=== PATIENT | male | born 1940 | race Caucasian/White ===

== ENCOUNTER → 2023-10-05 06:32 | Day surgery (SDC) | payer MEDICARE, SELFPAY | LOC: GI 06:32 | PROVIDERS: ATTENDING PHYSICIAN Internal Medicine Gastroenterology; FAMILY PHYSICIAN Internal Medicine | DX: Z12.11 Encounter for screening for malignant neoplasm of colon (principal); D12.2 Benign neoplasm of ascending colon; K51.00 Ulcerative (chronic) pancolitis without complications; K57.30 Diverticulosis of large intestine without perforation or abscess without bleeding; D12.8 Benign neoplasm of rectum; K64.8 Other hemorrhoids; Z86.010 Personal history of colon polyps; Z98.0 Intestinal bypass and anastomosis status | CPT/HCPCS: 45385; 45380; 88305 ==

== ENCOUNTER 2025-04-09 11:51 | Emergency (ER) | payer MEDICARE, SELFPAY ==
[2025-04-09 11:56] VITALS: BP 183/80
[2025-04-09 12:11] VITALS: BMI 26.3
--- NOTE | 2025-04-09 12:27 | ED.GENMED ---
History of Present Illness
General
Chief Complaint: Head Injury
Time Seen by Provider: 04/09/25 12:03
History of Present Illness
History of Present Illness:
85 yo male w/ hx of HTN, HLD and COPD presents to the Emergency Department for evaluation after a fall. Reportedly was walking in the kitchen when he fell, he is uncertain of the mechanism however his saw him attempt to break his fall with his
hands. + head strike, no reported LOC, no N/V. Currently reports R hand/5th finger pain and mid/low back pain. Was able to ambulate on arrival to the ED. Takes 81mg asa, no OAC. Denies neck pain, vision changes, CP/SOB, upper or lower extremity
paresthesias.
Past History
Past History
ED Past Medical History: HTN, Hypercholesterolemia and Other (Ulcerative colitis, Diverticulitis, C-diff)
ED Past Surgical History: Appendectomy, Bowel resection, Orthopedic and Tonsilectomy
Social History
Tobacco: Former smoker
Alcohol: Occasional
Personal:
Living: with family
Employment: Retired
Family History
Family History: Other (Noncontributory)
Review of Systems
Review of Systems
Allergies reviewed?: Yes
All Other Systems: ROS reviewed and negative except as documented in HPI and ROS
Phy Exam
Physical Exam
Physical Exam:
GEN: Well appearing, NAD, WDWN
Eyes: PERRLA, EOMs intact, no scleral icterus
HENT: Minor ecchymosis to the R temporal scalp, no crepitus/hematoma. No midline C spine pain
Lungs: CTAB, no wheezes, rales, rhonchi, normal chest wall excursion
Cardiac: RRR, no M/R/G, no peripheral edema. Radial pulses 2+ bilat
Abdomen: S, NT, ND, NABS, no masses or hepatosplenomegaly
Neuro: AO x 3, no focal deficits to BUE/BLE, normal sensation throughout
MSK: No gross deformity or ecchymosis. No edema. No midline C spine tenderness; + low thoracic/upper lumbar midline tenderness w/o palpable deformity. Pelvis stable without tenderness or crepitus
Skin: No rashes, petechiae. Normal color, no pallor or jaundice.
Psych: Calm, cooperative, proper hygiene
Course
Orders/Labs/Results
Orders:
Orders
04/09/25 12:26
CR Finger(s)/thumb Min 2 Vw Rt Urgent
Comment:
Reason For Exam: R 5th finger injury
Indicate Which Finger:: Little Finger
CR Lumbar Spine Comp Min 4 Vw* Urgent
Comment:
Reason For Exam: fall
CR Thoracic Spine 3 Views Urgent
Comment:
Reason For Exam: fall
04/09/25 12:27
CT Head W/o Iv Contrast Urgent
Comment:
Reason For Exam: fall head injury
Vital Signs
Initial and Last Documented VS:
Initial Vital Signs
Temp Pulse Resp BP Pulse Ox
97.5 F 87 20 183/80 95
04/09/25 11:56 04/09/25 11:56 04/09/25 11:56 04/09/25 11:56 04/09/25 11:56
Last Documented Vital Signs
Temp Pulse Resp BP Pulse Ox
97.5 F 87 20 183/80 95
04/09/25 11:56 04/09/25 11:56 04/09/25 11:56 04/09/25 11:56 04/09/25 12:28
MDM/Problems Addressed
MDM/Problems Addressed:
Imaging without evidence for ICH/skull fx or bony trauma. The fall sounds mechanical based on the spouse reporting that pt assumed a defensive position to shield himself from injury. Wounds cleansed and re approximated with steri strips. Suitable
for d/c home
*Pulse Oximetry
SaO2: 95
Oxygen Mode of Delivery: Room air
Patient hypoxic: no
*Critical Care Note
Total Time (30-74mins, 75-104mins- exclusive of procedures): Not Applicable
ED Attending Note
-
Portions of this chart may have been created with voice recognition software.� Occasional wrong word or��sound alike� substitutions may have occurred due to the inherent limitations of voice recognition software.
Discharge Plan
Departure
Patient Disposition: Home (Routine Discharge)
Date of Disposition: 04/09/25
Time of Disposition: 13:31
Patient with high blood pressure during this ER visit?: No
Discharge Problem:
Fall, Closed head injury, Skin tear of right forearm without complication, Skin tear right little finger
Instructions: Wound Care (DC), Head Injury in Adults (DC)
Prescriptions:
No Action
atorvastatin [Lipitor] 40 MG tablet
40 mg PO DAILY
carvedilol 12.5 MG tablet
12.5 mg PO BID
aspirin [Adult Aspirin Regimen] 81 MG tablet,delayed release (DR/EC)
81 mg PO DAILY
benazepril [Lotensin] 20 MG tablet
20 mg PO DAILY
ezetimibe [Zetia] 10 MG tablet
10 mg PO DAILY
mesalamine [Lialda] 1.2 GM tablet,delayed release (DR/EC)
1.2 g PO BID AT 0800,1700
cholecalciferol (vitamin D3) [Vitamin D3] 2,000 UNIT capsule
2,000 mg PO DAILY
[id number] [Men 50 Plus Multivitamin] 1 EACH tablet
1 tab PO DAILY
Patient Comments:
Pt is on Men's 50 plus Centrum Silver MVI without iron
carbamazepine 100 MG tablet,chewable
100 mg PO QID
Bifidobacterium infantis [Align (B.infantis)] 4 MG capsule
4 mg PO DAILY
amlodipine [Norvasc] 5 MG tablet
5 mg PO BID
hydrocodone-acetaminophen 1 TABLET tablet
1 - 2 tab PO Q4HPRN PRN (Reason: pain) Qty: 40 0RF
tramadol 50 MG tablet
25 - 50 mg PO Q6HPRN PRN (Reason: severe pain/breakthrough pain) Qty: 20 0RF
Activity Restrictions/Additional Instructions:
Keep wounds dry today, then you may gently wash with soap and water tomorrow
Steri strips will fall off on their own in 5 or so days
Follow up with your primary care physician as needed
Interventions
Interventions:
*Risk Screen - Suicide Last Done: 04/09/25 11:56
*Neglect/Abuse Screening Last Done: 04/09/25 11:56
*Nursing Disposition Last Done: 04/09/25 13:48
ED- Neurological Assessment Last Done: 04/09/25 12:09
ED-Skin Assessment Last Done: 04/09/25 12:09
Discharge Date and Time
Discharge Date/Time: 04/09/25 13:50
Print Language: CHINESE
== END 2025-04-09 13:50 | disposition home or self-care (01) ==
LOC: EMR 11:51
PROVIDERS: EMERGENCY PHYSICIAN Student in an Organized Health Care Education/Training Program
DX: S09.90XA Unspecified injury of head, initial encounter (principal); S51.811A Laceration without foreign body of right forearm, initial encounter; S61.216A Laceration without foreign body of right little finger without damage to nail, initial encounter; W19.XXXA Unspecified fall, initial encounter; I10 Essential (primary) hypertension; E78.00 Pure hypercholesterolemia, unspecified; J44.9 Chronic obstructive pulmonary disease, unspecified; K51.90 Ulcerative colitis, unspecified, without complications; Z87.891 Personal history of nicotine dependence; Z90.49 Acquired absence of other specified parts of digestive tract
CPT/HCPCS: 99284; 70450; 72072; 72110; 73140

== ENCOUNTER 2025-04-13 04:54 | Emergency (ER) | payer MEDICARE, SELFPAY ==
[2025-04-13 05:03] VITALS: BP 180/98
[2025-04-13 05:04] VITALS: BMI 26.9
--- NOTE | 2025-04-13 05:16 | ED.GENMED ---
History of Present Illness
General
Chief Complaint: Back Pain
Source: patient and spouse
Exam Limitations: none
Time Seen by Provider: 04/13/25 05:00
Nursing documentation reviewed up to this point in time: agreed with
History of Present Illness
History of Present Illness:
85-year-old male past medical history of previous stroke hypertension hyperlipidemia presenting to the emergency department today with concerns after a fall that occurred 3 days ago had imaging at the time including back head CT without emergent
findings. He was discharged did have some ongoing back pain back pain is slightly progressed and has had difficulty sleeping getting comfortable due to ongoing back discomfort. Has been able to ambulate denies any urinary symptoms any numbness or
weakness into the extremities.
Past History
Past History
ED Past Medical History: HTN, Hypercholesterolemia and Other (Ulcerative colitis, Diverticulitis, C-diff)
ED Past Surgical History: Appendectomy, Bowel resection, Orthopedic and Tonsilectomy
Social History
Tobacco: Former smoker
Alcohol: Occasional
Personal:
Living: with family
Employment: Retired
Family History
Family History: Other (Noncontributory)
Review of Systems
Review of Systems
Allergies reviewed?: Yes
All Other Systems: ROS reviewed and negative except as documented in HPI and ROS
Phy Exam
Physical Exam
Physical Exam:
GENERAL: Alert , in no apparent distress
EYE: pupils equal and reactive
NECK: Supple, no significant adenopathy.
ENT: o/p clr, mmm.
CARDIAC: Regular rate and rhythm .
LUNGS: Clear breath sounds bilaterally, no acute respiratory distress, no wheezes/rales/rhonchi
ABDOMEN: Soft, without focal tenderness, no r/g, no cvat
NEUROLOGICAL: Alert and oriented, no focal neuro deficits
SKIN: Warm and dry, skin intact.
MUSCULOSKELETAL: No edema, well perfused.
PSYCH: Normal and appropriate interaction.
Course
Orders/Labs/Results
Orders:
Orders
04/13/25 05:16
Hydrocodone 7.5/APAP 325 [Sheldon 7.5/325] 1 tablet PO NOW STA
Ketorolac [Toradol] 30 mg IM NOW STA
Vital Signs
Initial and Last Documented VS:
Initial Vital Signs
Temp Pulse Resp BP Pulse Ox
97.6 F 90 20 180/98 93
04/13/25 05:03 04/13/25 05:03 04/13/25 05:03 04/13/25 05:03 04/13/25 05:03
Last Documented Vital Signs
Temp Pulse Resp BP Pulse Ox
97.6 F 92 20 180/98 94
04/13/25 05:03 04/13/25 08:13 04/13/25 05:03 04/13/25 05:03 04/13/25 08:13
MDM/Problems Addressed
MDM/Problems Addressed:
85-year-old male presenting to the emergency department with concerns of low back pain. This occurred after a fall that occurred 3 days ago. At the time did have imaging without signs of any bony injury. Patient is able to ambulate symptoms seem
to worsen with movements and positioning. She has been consistent with a soft tissue low back pain. Plan for symptomatic treatment. Otherwise patient is neurologically intact. No focal midline pain no overlying skin changes. No evidence of
cauda equina or infectious cause of back pain patient recently did have an x-ray did not show any signs of fracture.
We had a long discussion about potential pain medications and the concern of risk of the opioid medication considering it can increase risk of falling. He demonstrated understanding of this he claims that he would like to take the medication and
does have a very safe circumstance at home and always has his available to help him at home. He claims that he has not been able to sleep and would be very careful taking medication but does not like to take the medication despite the
potential risk.
*Pulse Oximetry
SaO2: 93
Oxygen Mode of Delivery: Room air
Patient hypoxic: no (96)
*Critical Care Note
Total Time (30-74mins, 75-104mins- exclusive of procedures): Not Applicable
ED Attending Note
-
Portions of this chart may have been created with voice recognition software.� Occasional wrong word or��sound alike� substitutions may have occurred due to the inherent limitations of voice recognition software.
Discharge Plan
Departure
Patient Disposition: Home (Routine Discharge)
Date of Disposition: 04/13/25
Time of Disposition: 06:04
Patient with high blood pressure during this ER visit?: No
Condition: Good
Covid-19: Not Applicable
Discharge Problem:
Back pain
Instructions: Low Back Pain (DC)
Prescriptions:
New
hydrocodone-acetaminophen 5-300 mg tablet
1 tab PO BID PRN (Reason: Pain) Qty: 5 0RF
No Action
atorvastatin [Lipitor] 40 MG tablet
40 mg PO DAILY
aspirin [Adult Aspirin Regimen] 81 MG tablet,delayed release (DR/EC)
81 mg PO Q48H
benazepril [Lotensin] 20 MG tablet
20 mg PO DAILY
ezetimibe [Zetia] 10 MG tablet
10 mg PO DAILY
mesalamine [Lialda] 1.2 GM tablet,delayed release (DR/EC)
1.2 g PO BID AT 0800,1700
cholecalciferol (vitamin D3) [Vitamin D3] 2,000 UNIT capsule
2,000 mg PO DAILY
Men 50 Plus Multivitamin 1 EACH tablet
1 tab PO DAILY
Patient Comments:
Pt is on Men's 50 plus Centrum Silver MVI without iron
carbamazepine 100 MG tablet,chewable
100 mg PO BID
amlodipine [Norvasc] 5 MG tablet
5 mg PO BID
turmeric
1,500 mg PO DAILY
Referrals:
Mukesh Kirk MD [Family Provider, Internal Medicine]
Activity Restrictions/Additional Instructions:
You came to the emergency department today with concerns of back pain. This likely is from soft tissue inflammation. Please take the prescribed medication help with pain and follow-up closely with your primary care doctor this week. Return for
any worsening, new or concerning symptoms.
Interventions
Interventions:
*Risk Screen - Suicide Last Done: 04/13/25 04:55
*General Assessment Last Done: 04/13/25 04:55
*Neglect/Abuse Screening Last Done: 04/13/25 05:09
*ED- Fall Risk Assessment Last Done: 04/13/25 04:55
*ED COVID-19 Vaccine History Last Done: 04/13/25 04:55
*ED Influenza Vaccine History Last Done: 04/13/25 04:55
*Nursing Disposition Last Done: 04/13/25 08:13
ED-Musculoskeletal Assessment Last Done: 04/13/25 05:07
Discharge Date and Time
Discharge Date/Time: 04/13/25 08:14
Print Language: THAI
[2025-04-13] MEDS: NORCO 7.5/325 1 TABLET PO (05:29)
[2025-04-13] MEDS: TORADOL 30 MG IM (05:29)
== END 2025-04-13 08:14 | disposition home or self-care (01) ==
LOC: EMR 04:54
PROVIDERS: EMERGENCY PHYSICIAN Emergency Medicine; FAMILY PHYSICIAN Internal Medicine
DX: M54.50 Low back pain, unspecified (principal); I10 Essential (primary) hypertension; E78.00 Pure hypercholesterolemia, unspecified; Z87.891 Personal history of nicotine dependence; Z90.49 Acquired absence of other specified parts of digestive tract; Z86.73 Personal history of transient ischemic attack (TIA), and cerebral infarction without residual deficits
CPT/HCPCS: 96372; 99284

== ENCOUNTER → 2025-05-11 09:17 | Outpatient (REF) | payer MEDICARE, SELFPAY | LOC: PAVMRI 09:17 | PROVIDERS: ATTENDING PHYSICIAN Anesthesiology; FAMILY PHYSICIAN Internal Medicine | DX: M54.16 Radiculopathy, lumbar region (principal) | CPT/HCPCS: 72148 ==